=== PATIENT | female | born 1985 | race Caucasian/White ===

== ENCOUNTER 2020-06-13 13:12 | Outpatient (CLI) | payer BC ==
[2020-06-13 15:19] LABS: Basophils % (Auto) 0.2 % (0.0-1.8); Eosinophils # (Auto) 0.1 K/mm3 (0.0-0.4); Eosinophils % (Auto) 1.2 % (0.0-4.3); Hematocrit 35.1 % (30.3-42.9); Hemoglobin 12.1 gm/dl (10.1-14.3); Lymphocytes # (Auto) 2.4 K/mm3 (1.2-5.4); Lymphocytes % (Auto) 20.2 % (13.4-35.0); Mean Corpuscular HGB Conc 35 % (30-34); Mean Corpuscular Volume 90 fl (79-97); Monocytes # (Auto) 0.5 K/mm3 (0.0-0.8); Monocytes % (Auto) 4.3 % (0.0-7.3); Platelet Count 267 K/mm3 (140-440); Red Cell Distribution Width 14.3 % (13.2-15.2)
== END 2020-06-13 13:13 | disposition home or self-care (01) ==
LOC: LAB 13:12
PROVIDERS: ATTEND Obstetrics & Gynecology
DX: N92.5 Other specified irregular menstruation (principal)
CPT/HCPCS: 36415; 85025; 85652; 86592; 86705; 86803; 86900; 86901; 87517

== ENCOUNTER 2020-07-11 08:53 | Outpatient (CLI) | payer BC | END 2020-07-11 08:54 | disposition home or self-care (01) | LOC: LAB 08:53 | PROVIDERS: ATTEND Obstetrics & Gynecology | DX: O09.522 Supervision of elderly multigravida, second trimester (principal); Z13.1 Encounter for screening for diabetes mellitus; Z11.3 Encounter for screening for infections with a predominantly sexual mode of transmission; Z3A.00 Weeks of gestation of pregnancy not specified | CPT/HCPCS: 36415; 86689; 86762; 86850 ==

== ENCOUNTER 2020-08-04 16:02 | Outpatient (CLI) | payer BC ==
[2020-08-04 16:56] LABS: Hematocrit 34.7 % (30.3-42.9); Hemoglobin 11.9 gm/dl (10.1-14.3)
== END 2020-08-04 16:03 | disposition home or self-care (01) ==
LOC: LAB 16:02
PROVIDERS: ATTEND Obstetrics & Gynecology
DX: O09.892 Supervision of other high risk pregnancies, second trimester (principal); Z3A.24 24 weeks gestation of pregnancy
CPT/HCPCS: 36415; 82951; 85014; 85018; 85660

== ENCOUNTER 2020-09-20 14:23 | Outpatient (CLI) | payer BC | END 2020-09-20 14:24 | disposition home or self-care (01) | LOC: LAB 14:23 | PROVIDERS: ATTEND Obstetrics & Gynecology Maternal & Fetal Medicine | DX: O24.113 Pre-existing type 2 diabetes mellitus, in pregnancy, third trimester (principal); Z3A.00 Weeks of gestation of pregnancy not specified | CPT/HCPCS: 36415; 83036 ==

== ENCOUNTER 2020-10-18 16:17 | Outpatient (CLI) | payer BC ==
[2020-10-26 07:47] LABS: HIV-1 Antibody Differentiation SEE SCANNED RESULT; HIV-2 Antibody Differentiation SEE SCANNED RESULT
== END 2020-10-18 16:18 | disposition home or self-care (01) ==
LOC: LAB 16:17
PROVIDERS: ATTEND Obstetrics & Gynecology
DX: O09.893 Supervision of other high risk pregnancies, third trimester (principal); O98.513 Other viral diseases complicating pregnancy, third trimester; Z3A.35 35 weeks gestation of pregnancy
CPT/HCPCS: 36415; 86592; 86689

== ENCOUNTER 2020-10-23 17:56 | Outpatient (CLI) | payer BC ==
[2020-10-23] MEDS ORDERED: LACTATED RINGERS 1,000 ML IV ONE (18:14)
[2020-10-23 19:02] LABS: Bacteria,Urine 1+ /HPF (Negative); Bilirubin,Urine NEG (Negative); Blood,Urine SM (Negative); Color,Urine Yellow (Yellow); Mucus,Urine FEW /HPF; Urobilinogen,Urine < 2.0 mg/dL (<2.0); WBC,Urine < 1.0 /HPF (0.0-6.0)
[2020-10-23 19:25] VITALS: BP 112/72
== END 2020-10-23 19:45 | disposition home or self-care (01) ==
LOC: TRG 17:56 → APU 18:00 → TRG 19:45
PROVIDERS: ATTEND Obstetrics & Gynecology
DX: O09.893 Supervision of other high risk pregnancies, third trimester (principal); Z3A.35 35 weeks gestation of pregnancy
CPT/HCPCS: 59025; 81001

== ENCOUNTER 2020-11-08 16:14 | Inpatient (IN) | payer BC ==
[2020-11-08] MEDS ORDERED: MINERAL OIL 30 ML ORAL LIQD PO PRN (16:29)
[2020-11-08] MEDS ORDERED: LOPERAMIDE 2 MG CAP PO PRN (16:29)
[2020-11-08] MEDS ORDERED: ACETAMINOPHEN 325 MG TAB PO PRN (16:29)
[2020-11-08] MEDS ORDERED: miSOPROStol 200 MCG TAB PR PRN (16:29)
[2020-11-08] MEDS ORDERED: NalbUPHINE 10 MG/1 ML INJ IV PRN (16:29)
[2020-11-08] MEDS ORDERED: ONDANSETRON 4 MG/2 ML INJ IV PRN (16:29)
[2020-11-08] MEDS ORDERED: CARBOPROST TROMETHAMINE 250 MCG/1 ML INJ IM PRN (16:29)
[2020-11-08] MEDS ORDERED: OXYTOCIN 10 UNIT/1 ML INJ IM PRN (16:29)
[2020-11-08] MEDS ORDERED: ePHEDrine SULFATE 50 MG/1 ML INJ IV PRN (16:29)
[2020-11-08] MEDS ORDERED: TERBUTALINE 1 MG/1 ML INJ SUB-Q PRN (16:29)
[2020-11-08] MEDS ORDERED: DEXTROSE 50% IN WATER (25GM) 50 ML SYRINGE IV PRN (16:37)
--- NOTE | 2020-11-08 16:39 | History and Physical Report ---
History of Present Illness Date of examination: 11/08/20 Chief complaint: pt sent for admission from office d/t pre-eclampsia, admit for IOL. History of present illness: EDC Calculations by LMP: 11/20/2020 Past History : 1 Term Births: 0 Premature Births: 0 Living Children: 0 Para: 0 Mult. Births: 0 Prev : 0 Prev. attempt? 0 Aborta: 0 Elect. Ab: 0 Spont. Ab: 0 Ectopics: 0 Past Medical History: bronchitis - seasonally, uses albuterol inhaler COVID 19 + in march 2020 Past Surgical History: Negative Past Surgical History Past Medical History Surgery (Non-clamp remover): Negative Past Surgical History Abnormal PAP: negative FIONA Exposure: negative Infertility: negative Uterine Anomaly: negative Uterine Surgery (not C/S): negative Other Gynecologic Problems: negative Family Hx: DM - mother heart problems - father stomach - maybe uterine cancer; MGM Social Hx: no ETOH/Drugs/Smoking no pets not currenlty working Infection History Hx of STD: none HIV Risk Eval: no Hepatitis B Risk Eval: low risk Personal hx. of genital herpes: no Partner hx. of genital herpes: no Rash, Viral, or Febrile illness since last LMP? no Genetic History ADVANCED MATERNAL AGE Congenital Heart Defect: Mom: no Dad: no Merle Disease: Mom: no Dad: no Thalassemia Mom: no Dad: no Neural Tube Defect Mom: no Dad: no Down's Syndrome Mom: no Dad: no Cristino-Sachs Mom: no Dad: no Sickle Cell Disease/Trait Mom: no Dad: no Hemophilia Mom: no Dad: no Muscular Dystrophy Mom: no Dad: no Cystic Fibrosis Mom: no Dad: no Burke Chorea Mom: no Dad: no Mental Retardation Mom: no Dad: no Fragile X Mom: no Dad: no Other Genetic/Chromosomal Disorder Mom: no Dad: no Child w/other defect Mom: no Dad: no Enviromental Exposures Xray Exposure: no Medication, drug, or alcohol use since LMP: no Chemical/Other Exposure: no Exposure to Cat Liter: no Hx of Parvovirus (Fifth Disease): no Occupational Exposure to Children: none Current Allergies (reviewed today): * SEASONAL ALLERGIES (Critical) Past History Past Medical History: other (see HPI) Past Surgical History: other (see HPI) 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) Family/Genetic History: other (see HPI) Social history: no significant social history, , lives with family - Obstetrical History Expected Date of Delivery: 11/20/20 Actual Gestation: 38 Week(s) 2 Day(s) : 1 Para: 0 Hx # Term Pregnancies: 0 Number of Pregnancies: 0 Spontaneous Abortions: 0 Induced : 0 Number of Living Children: 0 Medications and Allergies Allergies Allergy/AdvReac Type Severity Reaction Status Date / Time No Known Allergies Allergy Verified 10/23/20 18:10 Review of Systems All systems: negative - Vital Signs Vital signs: Vital Signs Pulse BP 71 136/80 11/08/20 16:32 11/08/20 16:32 Temp Pulse Resp BP Pulse Ox 71 136/80 11/08/20 16:32 11/08/20 16:32 - Physical Exam Breasts: Positive: normal Cardiovascular: Regular rate Lungs: Positive: Normal air movement Abdomen: Positive: normal appearance, soft Genitourinary (Female): Positive: normal external genitalia, normal perenium Vagina: Positive: normal moisture Uterus: Positive: normal size, normal contour Anus/Rectum: Positive: normal perianal skin Extremities: Positive: edema (2+ pitting, periorbital edema present as well) Deep Tendon Reflex Grade: Normal but brisk +3 - Obstetrical FHR: category 1 Uterine Contraction Monitor Mode: External Cervical Dilatation: 0 (sve by LOLIS Ugarte in office) Cervical Effacement Percentage: 50 station: -2 Uterine Contraction Pattern: Irregular Uterine Tone Measurement Phase: Contraction Uterine Contraction Intensity: Mild Results All other labs normal. Assessment and Plan 35y/o @ 38+2 weeks seen in office today, b/p 148/96 with 3+ proteinuria on dip, DTRs brisk with edema noted on face and extremities. GBS neg. IDDM controlled on insulin. Pt reports frequent ESPARZA, denies epigastric pain or visual changes. AMFM u/s on 11/03; EFW 7#3oz, DELON 17, cephalic. Orders in EMR. Plan to begin IOL tonight. Dr. Garrett aware. discussed with patient and cervical ripening tonight with reassessment in AM, serial IOL lasting 3-5 days possible. All questions addressed. - Patient Problems (1) Advanced maternal age (AMA) in Current Visit: Yes Status: Acute (2) IDDM (insulin dependent diabetes mellitus) Current Visit: Yes Status: Acute Plan to address problem: accuchecks q6hr during cervical ripening, q2h in labor Sliding scale insulin resume 1/2 of current dose after delivery (3) Pre-eclampsia Current Visit: Yes Status: Acute Qualifiers: Trimester: third trimester Qualified Code(s): O14.93 - Unspecified pre- eclampsia, third trimester Plan to address problem: start cervicial ripening tonight pre-e labs ordered strict I&O close monitoring of b/ps -use of antihypertensives if needed Mag sulfate for neuro protection when in active labor mag levels q6hr at that time. (4) 38 weeks gestation of Current Visit: Yes Status: Acute
[2020-11-08] MEDS ORDERED: LIDOCAINE (2%) 20 MG/1 ML VIAL 20 ML MDV INFILTRATI ONE (16:45)
[2020-11-08] MEDS ORDERED: OXYTOCIN DRIP 30 UNITS/500 ML BAG IV SCH (17:00)
[2020-11-08 17:47] LABS: Hematocrit 37.2 % (30.3-42.9); Hemoglobin 12.5 gm/dl (10.1-14.3); Mean Corpuscular HGB Conc 34 % (30-34); Mean Corpuscular Volume 92 fl (79-97); Platelet Count 192 K/mm3 (140-440); Red Blood Count 4.05 M/mm3 (3.65-5.03); Red Cell Distribution Width 15.8 % (13.2-15.2)
[2020-11-08] MEDS ORDERED: DINOPROSTONE 10 MG VAG SUPP VG ONE (18:00)
[2020-11-08 18:06] LABS: Alanine Aminotransferase 18 units/L (7-56); Uric Acid 5.3 mg/dL (3.5-7.6)
[2020-11-08] MEDS: LACTATED RINGERS 1,000 ML IV SCH (19:45)
[2020-11-08] MEDS: INSULIN REGULAR, HUMAN 100 UNITS/1 ML SUB-Q SCH ×2 (21:29→22:51)
[2020-11-08] MEDS: valACYclovir 500 MG TAB PO SCH (22:31)
[2020-11-08 23:05] LABS: Bacteria,Urine 2+ /HPF (Negative); Bilirubin,Urine NEG (Negative); Blood,Urine MOD (Negative); Color,Urine Yellow (Yellow); Urobilinogen,Urine < 2.0 mg/dL (<2.0)
--- NOTE | 2020-11-09 07:37 | Progress Note ---
Assessment and Plan Pt reports c/o cramping pains /10, otherwise denies complaints at this time. IOL options with risk and benefits discussed in length with pt and RN @BS. Pt desires cervidil to remain for 12 hours then pitocin augmentation to start. SVE deferred per pt preferences. POC d/w pt and RN. All questions and concerns addressed. - Patient Problems (1) 38 weeks gestation of Current Visit: Yes Status: Acute (2) Advanced maternal age (AMA) in Current Visit: Yes Status: Acute (3) IDDM (insulin dependent diabetes mellitus) Current Visit: Yes Status: Acute Plan to address problem: blood glucose check q6h until active labor, then q2h sliding scale insulin start 1/2 home dose after delivery (4) Pre-eclampsia Current Visit: Yes Status: Acute Qualifiers: Trimester: third trimester Qualified Code(s): O14.93 - Unspecified pre- eclampsia, third trimester Plan to address problem: monitor closely and notify provider with any changes in status strict I&O magnesium sulfate IV once in active labor with lab level checks q6h Subjective - Subjective Date of service: 11/09/20 Principal diagnosis: IUP @38w3d, IOL for Preeclampsia, IDDM Patient reports: movement normal, contractions, no new complaints, no loss of fluid, no vaginal bleeding Objective - Vital Signs Vital Signs: Vital Signs - 12hr 11/08/20 11/08/20 11/08/20 19:49 20:12 20:13 Temperature Pulse Rate 73 57 L Respiratory Rate Blood Pressure 135/56 113/59 O2 Sat by Pulse 64 L 98 Oximetry 11/08/20 11/08/20 11/08/20 20:17 20:18 20:23 Temperature Pulse Rate 58 L 61 68 Respiratory Rate Blood Pressure 119/62 O2 Sat by Pulse 99 99 Oximetry 11/08/20 11/08/20 11/08/20 20:28 20:33 20:38 Temperature Pulse Rate 60 60 66 Respiratory Rate Blood Pressure 116/57 O2 Sat by Pulse 99 98 99 Oximetry 11/08/20 11/08/20 11/08/20 20:43 20:47 20:48 Temperature Pulse Rate 63 56 L 71 Respiratory Rate Blood Pressure 103/57 O2 Sat by Pulse 98 99 Oximetry 08/04/21 08/04/21 08/04/21 20:53 21:05 21:10 Temperature Pulse Rate 82 94 H 82 Respiratory Rate Blood Pressure O2 Sat by Pulse 97 98 99 Oximetry 11/08/20 11/08/20 11/08/20 21:15 21:17 21:20 Temperature Pulse Rate 74 85 88 Respiratory Rate Blood Pressure 129/80 O2 Sat by Pulse 99 99 Oximetry 11/08/20 11/08/20 11/08/20 21:25 21:30 21:34 Temperature Pulse Rate 74 98 H 61 Respiratory Rate Blood Pressure 111/53 O2 Sat by Pulse 99 98 Oximetry 11/08/20 11/08/20 11/08/20 21:35 21:40 21:45 Temperature Pulse Rate 65 76 58 L Respiratory Rate Blood Pressure O2 Sat by Pulse 99 100 99 Oximetry 11/08/20 11/08/20 11/08/20 21:47 21:50 21:55 Temperature Pulse Rate 67 60 74 Respiratory Rate Blood Pressure 115/59 O2 Sat by Pulse 99 99 Oximetry 11/08/20 11/08/20 11/08/20 22:00 22:08 22:09 Temperature Pulse Rate 78 99 H 76 Respiratory Rate Blood Pressure 128/65 O2 Sat by Pulse 100 100 Oximetry 11/08/20 11/08/20 11/08/20 22:13 22:18 22:19 Temperature Pulse Rate 81 76 90 Respiratory Rate Blood Pressure 157/69 O2 Sat by Pulse 99 99 Oximetry 11/08/20 11/08/20 11/08/20 22:23 22:28 22:33 Temperature Pulse Rate 84 64 72 Respiratory Rate Blood Pressure 122/65 O2 Sat by Pulse 100 99 98 Oximetry 11/08/20 11/08/20 11/08/20 22:35 22:38 22:43 Temperature 98.4 F Pulse Rate 74 76 Respiratory 16 Rate Blood Pressure O2 Sat by Pulse 100 99 Oximetry 11/08/20 11/08/20 11/08/20 22:48 22:53 22:58 Temperature Pulse Rate 72 70 59 L Respiratory Rate Blood Pressure 109/58 O2 Sat by Pulse 99 99 99 Oximetry 11/08/20 11/08/20 11/08/20 23:02 23:03 23:08 Temperature Pulse Rate 78 72 73 Respiratory Rate Blood Pressure 105/55 O2 Sat by Pulse 100 99 Oximetry 11/08/20 11/08/20 11/08/20 23:13 23:17 23:18 Temperature Pulse Rate 77 62 65 Respiratory Rate Blood Pressure 104/56 O2 Sat by Pulse 99 99 Oximetry 11/08/20 11/08/20 11/08/20 23:23 23:28 23:32 Temperature Pulse Rate 65 63 75 Respiratory Rate Blood Pressure 100/51 O2 Sat by Pulse 99 100 Oximetry 11/08/20 11/08/20 11/08/20 23:33 23:38 23:43 Temperature Pulse Rate 72 66 68 Respiratory Rate Blood Pressure O2 Sat by Pulse 100 100 99 Oximetry 11/08/20 11/08/20 11/08/20 23:47 23:48 23:53 Temperature Pulse Rate 62 75 74 Respiratory Rate Blood Pressure 103/49 O2 Sat by Pulse 100 99 Oximetry 11/08/20 11/09/20 11/09/20 23:58 00:02 00:03 Temperature Pulse Rate 69 61 61 Respiratory Rate Blood Pressure 102/51 O2 Sat by Pulse 99 99 Oximetry 11/09/20 11/09/20 11/09/20 00:08 00:13 00:17 Temperature Pulse Rate 67 71 72 Respiratory Rate Blood Pressure 86/37 O2 Sat by Pulse 100 99 Oximetry 11/09/20 11/09/20 11/09/20 00:18 00:23 00:34 Temperature Pulse Rate 77 69 75 Respiratory Rate Blood Pressure O2 Sat by Pulse 99 99 99 Oximetry 11/09/20 11/09/20 11/09/20 00:39 00:44 00:49 Temperature Pulse Rate 70 76 63 Respiratory Rate Blood Pressure 112/57 O2 Sat by Pulse 99 98 99 Oximetry 11/09/20 11/09/20 11/09/20 00:54 00:59 01:02 Temperature Pulse Rate 82 71 61 Respiratory Rate Blood Pressure 116/55 O2 Sat by Pulse 100 100 Oximetry 11/09/20 11/09/20 11/09/20 01:04 01:09 01:14 Temperature Pulse Rate 65 77 64 Respiratory Rate Blood Pressure O2 Sat by Pulse 99 98 99 Oximetry 11/09/20 11/09/20 11/09/20 01:17 01:19 01:24 Temperature Pulse Rate 70 71 64 Respiratory Rate Blood Pressure 124/66 O2 Sat by Pulse 98 98 Oximetry 11/09/20 11/09/20 11/09/20 01:29 01:32 01:34 Temperature Pulse Rate 58 L 78 61 Respiratory Rate Blood Pressure 116/57 O2 Sat by Pulse 98 99 Oximetry 11/09/20 11/09/20 11/09/20 01:39 01:44 01:47 Temperature Pulse Rate 56 L 64 76 Respiratory Rate Blood Pressure 111/57 O2 Sat by Pulse 99 98 Oximetry 11/09/20 11/09/20 11/09/20 01:49 01:54 01:59 Temperature Pulse Rate 70 63 60 Respiratory Rate Blood Pressure O2 Sat by Pulse 98 98 98 Oximetry 11/09/20 11/09/20 11/09/20 02:03 02:04 02:09 Temperature Pulse Rate 77 74 64 Respiratory Rate Blood Pressure 133/69 O2 Sat by Pulse 98 98 Oximetry 11/09/20 11/09/20 11/09/20 02:14 02:19 02:30 Temperature Pulse Rate 62 80 70 Respiratory Rate Blood Pressure 119/58 O2 Sat by Pulse 98 99 99 Oximetry 11/09/20 11/09/20 11/09/20 02:35 02:36 02:40 Temperature Pulse Rate 65 70 68 Respiratory Rate Blood Pressure 125/80 O2 Sat by Pulse 99 98 Oximetry 11/09/20 11/09/20 11/09/20 02:45 02:49 02:50 Temperature Pulse Rate 78 70 66 Respiratory Rate Blood Pressure 117/56 O2 Sat by Pulse 98 100 Oximetry 11/09/20 11/09/20 11/09/20 02:55 03:00 03:02 Temperature Pulse Rate 70 60 73 Respiratory Rate Blood Pressure 126/65 O2 Sat by Pulse 100 99 Oximetry 11/09/20 11/09/20 11/09/20 03:05 03:10 03:15 Temperature Pulse Rate 67 55 L 70 Respiratory Rate Blood Pressure O2 Sat by Pulse 99 98 99 Oximetry 11/09/20 11/09/20 11/09/20 03:18 03:20 03:25 Temperature Pulse Rate 57 L 55 L 57 L Respiratory Rate Blood Pressure 124/78 O2 Sat by Pulse 98 99 Oximetry 11/09/20 11/09/20 11/09/20 03:30 03:32 03:35 Temperature Pulse Rate 57 L 62 68 Respiratory Rate Blood Pressure 121/58 O2 Sat by Pulse 100 99 Oximetry 11/09/20 11/09/20 11/09/20 03:40 03:51 03:56 Temperature Pulse Rate 67 78 79 Respiratory Rate Blood Pressure O2 Sat by Pulse 98 99 98 Oximetry 11/09/20 11/09/20 11/09/20 04:01 04:02 04:06 Temperature Pulse Rate 62 54 L 74 Respiratory Rate Blood Pressure 124/58 O2 Sat by Pulse 99 100 Oximetry 11/09/20 11/09/20 11/09/20 04:11 04:16 04:17 Temperature Pulse Rate 69 65 56 L Respiratory Rate Blood Pressure 117/59 O2 Sat by Pulse 100 99 Oximetry 11/09/20 11/09/20 11/09/20 04:21 04:26 04:31 Temperature Pulse Rate 61 66 53 L Respiratory Rate Blood Pressure O2 Sat by Pulse 99 100 99 Oximetry 11/09/20 11/09/20 11/09/20 04:32 04:36 04:41 Temperature Pulse Rate 51 L 56 L 54 L Respiratory Rate Blood Pressure 112/55 O2 Sat by Pulse 98 99 Oximetry 11/09/20 11/09/20 11/09/20 04:46 04:48 04:51 Temperature Pulse Rate 60 55 L 51 L Respiratory Rate Blood Pressure 116/57 O2 Sat by Pulse 100 98 Oximetry 11/09/20 11/09/20 11/09/20 04:56 05:01 05:02 Temperature Pulse Rate 52 L 49 L 55 L Respiratory Rate Blood Pressure 120/70 O2 Sat by Pulse 98 99 Oximetry 11/09/20 11/09/20 11/09/20 05:06 05:11 05:16 Temperature Pulse Rate 65 60 55 L Respiratory Rate Blood Pressure O2 Sat by Pulse 98 99 98 Oximetry 11/09/20 11/09/20 11/09/20 05:21 05:29 05:34 Temperature Pulse Rate 62 74 70 Respiratory Rate Blood Pressure O2 Sat by Pulse 99 100 98 Oximetry 11/09/20 11/09/20 11/09/20 05:37 05:39 05:44 Temperature Pulse Rate 63 59 L 74 Respiratory Rate Blood Pressure 100/53 O2 Sat by Pulse 99 98 Oximetry 11/09/20 11/09/20 11/09/20 05:48 05:49 05:54 Temperature Pulse Rate 67 59 L 58 L Respiratory Rate Blood Pressure 114/55 O2 Sat by Pulse 99 99 Oximetry 11/09/20 11/09/20 11/09/20 05:59 06:02 06:04 Temperature Pulse Rate 58 L 63 55 L Respiratory Rate Blood Pressure 105/55 O2 Sat by Pulse 98 97 Oximetry 11/09/20 11/09/20 11/09/20 06:09 06:14 06:18 Temperature Pulse Rate 52 L 71 52 L Respiratory Rate Blood Pressure 106/57 O2 Sat by Pulse 98 98 Oximetry 11/09/20 11/09/20 11/09/20 06:19 06:24 06:25 Temperature Pulse Rate 56 L 74 57 L Respiratory Rate Blood Pressure O2 Sat by Pulse 98 92 97 Oximetry 11/09/20 11/09/20 11/09/20 06:30 06:32 06:33 Temperature Pulse Rate 60 68 65 Respiratory Rate Blood Pressure 100/56 O2 Sat by Pulse 98 93 Oximetry 11/09/20 11/09/20 11/09/20 06:35 06:54 07:02 Temperature Pulse Rate 74 63 56 L Respiratory Rate Blood Pressure 109/62 105/53 O2 Sat by Pulse 97 Oximetry 11/09/20 11/09/20 07:17 07:32 Temperature Pulse Rate 58 L 60 Respiratory Rate Blood Pressure 96/54 99/55 O2 Sat by Pulse Oximetry - Exam Breasts: deferred Cardiovascular: Regular rate Lungs: Clear to auscultation, Normal air movement Abdomen: Present: normal appearance, soft Vulva: both: normal Uterus: Present: normal. Absent: tenderness FHR: auscultation normal, category 1 Uterine Contraction Monitor Mode: External Uterine Contraction Pattern: Irregular Uterine Tone Measurement Phase: Resting Extremities: edema (2+ pitting BLE) - Labs Labs: Abnormal Labs 11/08/20 11/08/20 11/08/20 17:32 17:32 22:47 RDW 15.8 H POC Glucose 187 H Lactate Dehydrogenase 214 H Urine WBC (Auto) 11/08/20 Unknown RDW POC Glucose Lactate Dehydrogenase Urine WBC (Auto) 7.0 H Laboratory Results - last 24 hr 11/08/20 11/08/20 11/08/20 17:32 17:32 17:32 WBC 7.9 RBC 4.05 Hgb 12.5 Hct 37.2 MCV 92 MCH 31 MCHC 34 RDW 15.8 H Plt Count 192 Creatinine Estimated GFR POC Glucose Uric Acid AST ALT Lactate Dehydrogenase Urine Color Urine Turbidity Urine pH Ur Specific [place] Urine Protein Urine Glucose (UA) Urine Ketones Urine Blood Urine Nitrite Urine Bilirubin Urine Urobilinogen Ur Leukocyte Esterase Urine WBC (Auto) Urine RBC (Auto) U Epithel Cells (Auto) Urine Bacteria (Auto) Syphilis IgG Antibody Nonreactive Blood Type AB POSITIVE Antibody Screen Negative 11/08/20 11/08/20 11/08/20 17:32 19:31 22:47 WBC RBC Hgb Hct MCV MCH MCHC RDW Plt Count Creatinine 0.6 Estimated GFR > 60 POC Glucose 76 187 H Uric Acid 5.3 AST 22 ALT 18 Lactate Dehydrogenase 214 H Urine Color Urine Turbidity Urine pH Ur Specific [place] Urine Protein Urine Glucose (UA) Urine Ketones Urine Blood Urine Nitrite Urine Bilirubin Urine Urobilinogen Ur Leukocyte Esterase Urine WBC (Auto) Urine RBC (Auto) U Epithel Cells (Auto) Urine Bacteria (Auto) Syphilis IgG Antibody Blood Type Antibody Screen 11/08/20 11/09/20 Unknown 05:35 WBC RBC Hgb Hct MCV MCH MCHC RDW Plt Count Creatinine Estimated GFR POC Glucose 82 Uric Acid AST ALT Lactate Dehydrogenase Urine Color Yellow Urine Turbidity Clear Urine pH 7.0 Ur Specific [place] 1.006 Urine Protein 100 mg/dl Urine Glucose (UA) Neg Urine Ketones Neg Urine Blood Mod Urine Nitrite Neg Urine Bilirubin Neg Urine Urobilinogen < 2.0 Ur Leukocyte Esterase Mod Urine WBC (Auto) 7.0 H Urine RBC (Auto) 1.0 U Epithel Cells (Auto) 3.0 Urine Bacteria (Auto) 2+ Syphilis IgG Antibody Blood Type Antibody Screen
[2020-11-09] MEDS ORDERED: OXYTOCIN DRIP 30 UNITS/500 ML BAG IV SCH (11:00)
[2020-11-09] MEDS: INSULIN REGULAR, HUMAN 100 UNITS/1 ML SUB-Q SCH ×2 (11:05→17:35)
[2020-11-09] MEDS ORDERED: BUTORPHANOL 2 MG/1 ML INJ IV PRN (14:52)
[2020-11-09] MEDS: fentaNYL 100 MCG/2 ML INJ IV PRN ×3 (15:13→21:32)
[2020-11-09] MEDS: valACYclovir 500 MG TAB PO SCH ×2 (19:08→21:55)
[2020-11-10] MEDS ORDERED: NALOXONE 2 MG/2 ML INJ IV PRN (01:05)
[2020-11-10] MEDS ORDERED: ePHEDrine SULFATE 50 MG/1 ML INJ IV PRN (01:05)
--- NOTE | 2020-11-10 01:05 | Anesthesia Consultation ---
Anesthesia Consult and Med Hx Date of service: 11/10/20 - Airway Anesthetic Teeth Evaluation: Good ROM Head & Neck: Adequate Mental/Hyoid Distance: Adequate Mallampati Class: Class II Intubation Access Assessment: Probably Good - Pulmonary Exam CTA: Yes - Cardiac Exam Cardiac Exam: RRR - Pre-Operative Health Status ASA Pre-Surgery Classification: ASA3 Proposed Anesthetic Plan: Epidural - Pulmonary Hx Asthma: Yes (seasonal w/ inhaler use) - Cardiovascular System Hx Hypertension: Yes - Central Nervous System Hx Seizures: No Hx Psychiatric Problems: No - Endocrine Hx Renal Disease: No Hx Hypothyroidism: No Hx Hyperthyroidism: No - Hematic Hx Anemia: No Hx Sickle Cell Disease: No - Other Systems Hx Alcohol Use: Yes (not during )
--- NOTE | 2020-11-10 01:28 | Progress Note ---
Labor Epidural - Labor Epidural Start Time: 01:11 Stop Time: :20 Performed by:: AMANDA GATES Procedure: Patient is requesting epidural for labor pain. H&P, and labs reviewed. Procedure explained, questions answered, consent obtained. Patient in sitting position with blood pressure cuff and pulse ox on and working. Timeout performed immediately before start of procedure. Sterile chlorahexadine 0.5% prep/drape. 3 mL 1% lidocaine skin wheal at L[3]-L[4]. 18-gauge VGTI Flor[place]atead epidural needle advanced to [id number] with saline at 6 cm. 27-gauge spinal needle advanced until clear, free-flowing CSF. Intrathecal dexmedetomidine [5] mcg administered and needle removed. Epidural catheter unable to be advanced, removed with needle. Needle reinserted to CIRILO saline at 6 cm. Catheter advanced to [12] cm, negative aspiration for blood and csf, negative test dose 3 ml 1.5% lidocaine with epinephrine. Sterile steri-strips and tegaderm applied, followed by tape reinforcement. Patient tolerated procedure well.
[2020-11-10] MEDS: fentaNYL-BUPIV 2 MCG/ML-0.125% 200 MCG/100 ML BAG EPIDURAL SCH ×2 (01:55→10:11)
[2020-11-10] MEDS: INSULIN REGULAR, HUMAN 100 UNITS/1 ML SUB-Q SCH (03:21)
--- NOTE | 2020-11-10 06:58 | Event Note ---
Date: 11/10/20 (late entry) @7537 CNM to BS with RN; pt reports feeling comfortable s/p epidural. Pt denies all complaints; VSS with BP's 90's/50's, Magnesium seizure prophylaxis held and POC d/w pt and RN. Pt declines vaginal exam at this time. Pt encouraged SVE possibly more tolerable with epidural. Pt still declines SVE and states, "please not right now". Labor expectations discussed with pt and family member. All questions and concerns addressed.
[2020-11-10] MEDS ORDERED: PHENYLEPHRINE/NS 1,000 MCG/10 ML SYRINGE (OR USE) IV ONE (07:30)
--- NOTE | 2020-11-10 07:51 | Progress Note ---
Assessment and Plan A: 35 y.o. @ 38.4 wks, IOL d/t Pre eclampsia and GDM (insulin dependent). Cervical exam: 4.5/60/-4. P: Continue with Pitocin per protocol. Will re-examine cervix @ 1200 noon and determine plan based off examination. - Patient Problems (1) IDDM (insulin dependent diabetes mellitus) Current Visit: Yes Status: Acute (2) Pre-eclampsia Current Visit: Yes Status: Acute Qualifiers: Trimester: third trimester Qualified Code(s): O14.93 - Unspecified pre- eclampsia, third trimester Subjective - Subjective Date of service: 11/10/20 (Comfortable with epidural.) Principal diagnosis: IUP @38w4d, IOL for Preeclampsia, IDDM Patient reports: movement normal, contractions, no new complaints, no loss of fluid, no vaginal bleeding Objective - Vital Signs Vital Signs: Vital Signs - 12hr 11/09/20 11/09/20 11/09/20 19:49 19:54 19:59 Temperature Pulse Rate 57 L 57 L 62 Respiratory Rate Blood Pressure O2 Sat by Pulse 96 96 96 Oximetry O2 Sat by Pulse Oximetry [ Anterior Bilateral Throughout] 11/09/20 11/09/20 11/09/20 20:04 20:09 20:14 Temperature Pulse Rate 56 L 58 L 59 L Respiratory Rate Blood Pressure O2 Sat by Pulse 97 97 96 Oximetry O2 Sat by Pulse Oximetry [ Anterior Bilateral Throughout] 11/09/20 11/09/20 11/09/20 20:19 20:24 20:29 Temperature Pulse Rate 57 L 58 L 57 L Respiratory Rate Blood Pressure O2 Sat by Pulse 97 97 98 Oximetry O2 Sat by Pulse Oximetry [ Anterior Bilateral Throughout] 11/09/20 11/09/20 11/09/20 20:34 20:39 20:44 Temperature Pulse Rate 66 58 L 59 L Respiratory Rate Blood Pressure O2 Sat by Pulse 97 97 97 Oximetry O2 Sat by Pulse Oximetry [ Anterior Bilateral Throughout] 11/09/20 11/09/20 11/09/20 20:49 20:54 21:11 Temperature Pulse Rate 63 87 72 Respiratory Rate Blood Pressure 128/64 O2 Sat by Pulse 97 98 Oximetry O2 Sat by Pulse Oximetry [ Anterior Bilateral Throughout] 11/09/20 11/09/20 11/09/20 21:32 21:38 21:43 Temperature Pulse Rate 67 62 Respiratory 18 Rate Blood Pressure O2 Sat by Pulse 97 96 Oximetry O2 Sat by Pulse Oximetry [ Anterior Bilateral Throughout] 11/09/20 11/09/20 11/09/20 21:48 21:53 21:58 Temperature Pulse Rate 65 58 L 63 Respiratory Rate Blood Pressure O2 Sat by Pulse 97 98 97 Oximetry O2 Sat by Pulse Oximetry [ Anterior Bilateral Throughout] 11/09/20 11/09/20 11/09/20 22:03 22:08 22:13 Temperature Pulse Rate 79 67 67 Respiratory Rate Blood Pressure O2 Sat by Pulse 97 98 97 Oximetry O2 Sat by Pulse Oximetry [ Anterior Bilateral Throughout] 11/09/20 11/09/20 11/09/20 22:18 22:23 22:28 Temperature Pulse Rate 64 59 L 62 Respiratory Rate Blood Pressure 90/52 O2 Sat by Pulse 97 97 96 Oximetry O2 Sat by Pulse Oximetry [ Anterior Bilateral Throughout] 11/09/20 11/09/20 11/09/20 22:33 22:38 22:43 Temperature Pulse Rate 62 65 91 H Respiratory Rate Blood Pressure O2 Sat by Pulse 97 96 97 Oximetry O2 Sat by Pulse Oximetry [ Anterior Bilateral Throughout] 11/09/20 11/09/20 11/09/20 22:48 22:53 22:58 Temperature Pulse Rate 58 L 59 L 62 Respiratory Rate Blood Pressure O2 Sat by Pulse 96 97 96 Oximetry O2 Sat by Pulse Oximetry [ Anterior Bilateral Throughout] 11/09/20 11/09/20 11/09/20 23:03 23:08 23:13 Temperature Pulse Rate 62 72 89 Respiratory Rate Blood Pressure O2 Sat by Pulse 96 98 97 Oximetry O2 Sat by Pulse Oximetry [ Anterior Bilateral Throughout] 11/09/20 11/09/20 11/09/20 23:18 23:27 23:32 Temperature Pulse Rate 85 91 H 83 Respiratory Rate Blood Pressure O2 Sat by Pulse 97 99 97 Oximetry O2 Sat by Pulse Oximetry [ Anterior Bilateral Throughout] 11/09/20 11/09/20 11/09/20 23:37 23:42 23:47 Temperature Pulse Rate 81 78 81 Respiratory Rate Blood Pressure O2 Sat by Pulse 97 97 98 Oximetry O2 Sat by Pulse Oximetry [ Anterior Bilateral Throughout] 11/09/20 11/09/20 11/10/20 23:52 23:57 00:00 Temperature 98.3 F Pulse Rate 73 81 Respiratory 18 Rate Blood Pressure O2 Sat by Pulse 97 98 Oximetry O2 Sat by Pulse Oximetry [ Anterior Bilateral Throughout] 11/10/20 11/10/20 11/10/20 00:02 00:07 00:12 Temperature Pulse Rate 62 64 85 Respiratory Rate Blood Pressure O2 Sat by Pulse 99 98 98 Oximetry O2 Sat by Pulse Oximetry [ Anterior Bilateral Throughout] 11/10/20 11/10/20 11/10/20 00:17 00:22 00:27 Temperature Pulse Rate 65 61 66 Respiratory Rate Blood Pressure O2 Sat by Pulse 97 97 97 Oximetry O2 Sat by Pulse Oximetry [ Anterior Bilateral Throughout] 11/10/20 11/10/20 11/10/20 00:32 00:37 00:42 Temperature Pulse Rate 65 65 67 Respiratory Rate Blood Pressure O2 Sat by Pulse 97 96 97 Oximetry O2 Sat by Pulse Oximetry [ Anterior Bilateral Throughout] 11/10/20 11/10/20 11/10/20 00:47 00:52 00:57 Temperature Pulse Rate 63 69 65 Respiratory Rate Blood Pressure O2 Sat by Pulse 97 97 97 Oximetry O2 Sat by Pulse Oximetry [ Anterior Bilateral Throughout] 11/10/20 11/10/20 11/10/20 01:02 01:10 01:13 Temperature Pulse Rate 71 89 88 Respiratory Rate Blood Pressure 118/62 O2 Sat by Pulse 98 97 Oximetry O2 Sat by Pulse Oximetry [ Anterior Bilateral Throughout] 11/10/20 11/10/20 11/10/20 01:15 01:18 01:20 Temperature Pulse Rate 79 92 H 77 Respiratory Rate Blood Pressure 118/58 O2 Sat by Pulse 97 97 Oximetry O2 Sat by Pulse Oximetry [ Anterior Bilateral Throughout] 11/10/20 11/10/20 11/10/20 01:25 01:26 01:27 Temperature Pulse Rate 74 79 75 Respiratory Rate Blood Pressure 119/58 117/57 O2 Sat by Pulse 98 Oximetry O2 Sat by Pulse Oximetry [ Anterior Bilateral Throughout] 11/10/20 11/10/20 11/10/20 01:30 01:33 01:35 Temperature Pulse Rate 71 73 85 Respiratory Rate Blood Pressure 107/56 105/62 O2 Sat by Pulse 97 98 Oximetry O2 Sat by Pulse Oximetry [ Anterior Bilateral Throughout] 11/10/20 11/10/20 11/10/20 01:36 01:39 01:40 Temperature Pulse Rate 86 73 97 H Respiratory Rate Blood Pressure 105/62 105/56 O2 Sat by Pulse 97 Oximetry O2 Sat by Pulse Oximetry [ Anterior Bilateral Throughout] 11/10/20 11/10/20 11/10/20 01:42 01:45 01:48 Temperature Pulse Rate 85 74 86 Respiratory Rate Blood Pressure 114/61 111/61 109/59 O2 Sat by Pulse 97 Oximetry O2 Sat by Pulse Oximetry [ Anterior Bilateral Throughout] 11/10/20 11/10/20 11/10/20 01:50 01:51 01:54 Temperature Pulse Rate 83 81 84 Respiratory Rate Blood Pressure 105/55 112/55 O2 Sat by Pulse 97 Oximetry O2 Sat by Pulse Oximetry [ Anterior Bilateral Throughout] 11/10/20 11/10/20 11/10/20 01:55 01:57 02:00 Temperature Pulse Rate 79 71 78 Respiratory Rate Blood Pressure 113/56 O2 Sat by Pulse 97 98 Oximetry O2 Sat by Pulse Oximetry [ Anterior Bilateral Throughout] 11/10/20 11/10/20 11/10/20 02:03 02:05 02:10 Temperature Pulse Rate 70 71 59 L Respiratory Rate Blood Pressure 98/53 O2 Sat by Pulse 96 97 Oximetry O2 Sat by Pulse Oximetry [ Anterior Bilateral Throughout] 11/10/20 11/10/20 11/10/20 02:13 02:15 02:20 Temperature Pulse Rate 63 60 62 Respiratory Rate Blood Pressure 96/54 O2 Sat by Pulse 97 97 Oximetry O2 Sat by Pulse Oximetry [ Anterior Bilateral Throughout] 11/10/20 11/10/20 11/10/20 02:23 02:25 02:30 Temperature Pulse Rate 59 L 63 66 Respiratory Rate Blood Pressure 90/55 O2 Sat by Pulse 96 96 Oximetry O2 Sat by Pulse Oximetry [ Anterior Bilateral Throughout] 11/10/20 11/10/20 11/10/20 02:35 02:40 02:43 Temperature Pulse Rate 62 81 71 Respiratory Rate Blood Pressure 85/49 93/55 O2 Sat by Pulse 96 96 Oximetry O2 Sat by Pulse Oximetry [ Anterior Bilateral Throughout] 11/10/20 11/10/20 11/10/20 02:45 02:50 02:54 Temperature Pulse Rate 74 75 69 Respiratory Rate Blood Pressure 97/50 O2 Sat by Pulse 96 96 Oximetry O2 Sat by Pulse Oximetry [ Anterior Bilateral Throughout] 11/10/20 11/10/20 11/10/20 02:55 03:00 03:03 Temperature Pulse Rate 67 71 64 Respiratory Rate Blood Pressure 91/53 O2 Sat by Pulse 97 96 Oximetry O2 Sat by Pulse Oximetry [ Anterior Bilateral Throughout] 11/10/20 11/10/20 11/10/20 03:05 03:10 03:13 Temperature Pulse Rate 96 H 64 66 Respiratory Rate Blood Pressure O2 Sat by Pulse 96 96 94 Oximetry O2 Sat by Pulse Oximetry [ Anterior Bilateral Throughout] 11/10/20 11/10/20 11/10/20 03:15 03:20 03:25 Temperature Pulse Rate 63 62 60 Respiratory Rate Blood Pressure O2 Sat by Pulse 95 96 96 Oximetry O2 Sat by Pulse Oximetry [ Anterior Bilateral Throughout] 11/10/20 11/10/20 11/10/20 03:30 03:35 03:38 Temperature Pulse Rate 66 64 62 Respiratory Rate Blood Pressure 86/47 O2 Sat by Pulse 95 95 Oximetry O2 Sat by Pulse Oximetry [ Anterior Bilateral Throughout] 11/10/20 11/10/20 11/10/20 03:40 03:44 03:45 Temperature Pulse Rate 66 76 62 Respiratory Rate Blood Pressure O2 Sat by Pulse 95 94 96 Oximetry O2 Sat by Pulse Oximetry [ Anterior Bilateral Throughout] 11/10/20 11/10/20 11/10/20 03:50 03:55 04:00 Temperature Pulse Rate 79 61 60 Respiratory Rate Blood Pressure O2 Sat by Pulse 96 97 97 Oximetry O2 Sat by Pulse Oximetry [ Anterior Bilateral Throughout] 11/10/20 11/10/20 11/10/20 04:05 04:07 04:10 Temperature Pulse Rate 73 57 L 62 Respiratory Rate Blood Pressure 88/49 O2 Sat by Pulse 96 97 Oximetry O2 Sat by Pulse Oximetry [ Anterior Bilateral Throughout] 11/10/20 11/10/20 11/10/20 04:15 04:20 04:25 Temperature 98.4 F Pulse Rate 70 68 65 Respiratory 16 Rate Blood Pressure O2 Sat by Pulse 98 97 97 Oximetry O2 Sat by Pulse Oximetry [ Anterior Bilateral Throughout] 11/10/20 11/10/20 11/10/20 04:30 04:35 04:39 Temperature Pulse Rate 60 78 60 Respiratory Rate Blood Pressure 89/54 O2 Sat by Pulse 98 96 Oximetry O2 Sat by Pulse Oximetry [ Anterior Bilateral Throughout] 11/10/20 11/10/20 11/10/20 04:40 04:45 04:50 Temperature Pulse Rate 70 64 71 Respiratory Rate Blood Pressure O2 Sat by Pulse 97 98 97 Oximetry O2 Sat by Pulse Oximetry [ Anterior Bilateral Throughout] 11/10/20 11/10/20 11/10/20 04:55 05:00 05:05 Temperature Pulse Rate 65 64 71 Respiratory Rate Blood Pressure O2 Sat by Pulse 98 97 96 Oximetry O2 Sat by Pulse Oximetry [ Anterior Bilateral Throughout] 11/10/20 11/10/20 11/10/20 05:06 05:10 05:15 Temperature Pulse Rate 62 66 77 Respiratory Rate Blood Pressure 96/51 O2 Sat by Pulse 96 97 Oximetry O2 Sat by Pulse Oximetry [ Anterior Bilateral Throughout] 11/10/20 11/10/20 11/10/20 05:20 05:25 05:30 Temperature Pulse Rate 74 72 81 Respiratory Rate Blood Pressure O2 Sat by Pulse 98 97 97 Oximetry O2 Sat by Pulse Oximetry [ Anterior Bilateral Throughout] 11/10/20 11/10/20 11/10/20 05:35 05:36 05:40 Temperature Pulse Rate 71 74 76 Respiratory Rate Blood Pressure 107/54 O2 Sat by Pulse 96 89 97 Oximetry O2 Sat by Pulse Oximetry [ Anterior Bilateral Throughout] 11/10/20 11/10/20 11/10/20 05:45 05:50 05:56 Temperature Pulse Rate 78 73 75 Respiratory Rate Blood Pressure O2 Sat by Pulse 98 97 98 Oximetry O2 Sat by Pulse Oximetry [ Anterior Bilateral Throughout] 11/10/20 11/10/20 11/10/20 06:01 06:06 06:11 Temperature Pulse Rate 83 71 63 Respiratory Rate Blood Pressure 98/51 O2 Sat by Pulse 98 100 97 Oximetry O2 Sat by Pulse Oximetry [ Anterior Bilateral Throughout] 11/10/20 11/10/20 11/10/20 06:16 06:21 06:26 Temperature Pulse Rate 65 62 62 Respiratory Rate Blood Pressure O2 Sat by Pulse 97 97 97 Oximetry O2 Sat by Pulse Oximetry [ Anterior Bilateral Throughout] 11/10/20 11/10/20 11/10/20 06:31 06:36 06:41 Temperature Pulse Rate 64 63 68 Respiratory Rate Blood Pressure 90/52 O2 Sat by Pulse 97 98 98 Oximetry O2 Sat by Pulse Oximetry [ Anterior Bilateral Throughout] 11/10/20 11/10/20 11/10/20 06:46 06:51 06:56 Temperature Pulse Rate 70 66 68 Respiratory Rate Blood Pressure O2 Sat by Pulse 98 98 97 Oximetry O2 Sat by Pulse Oximetry [ Anterior Bilateral Throughout] 11/10/20 11/10/20 11/10/20 07:01 07:04 07:06 Temperature Pulse Rate 84 96 H 83 Respiratory Rate Blood Pressure 103/55 O2 Sat by Pulse 97 94 93 Oximetry O2 Sat by Pulse Oximetry [ Anterior Bilateral Throughout] 11/10/20 11/10/20 11/10/20 07:11 07:16 07:17 Temperature Pulse Rate 73 82 82 Respiratory Rate Blood Pressure O2 Sat by Pulse 96 94 94 Oximetry O2 Sat by Pulse Oximetry [ Anterior Bilateral Throughout] 11/10/20 11/10/20 11/10/20 07:21 07:26 07:31 Temperature Pulse Rate 96 H 77 85 Respiratory Rate Blood Pressure O2 Sat by Pulse 99 98 99 Oximetry O2 Sat by Pulse Oximetry [ Anterior Bilateral Throughout] 11/10/20 11/10/20 11/10/20 07:32 07:36 07:41 Temperature 98.0 F Pulse Rate 81 85 Respiratory Rate Blood Pressure 100/57 O2 Sat by Pulse 97 97 Oximetry O2 Sat by Pulse 97 Oximetry [ Anterior Bilateral Throughout] 11/10/20 07:46 Temperature Pulse Rate 73 Respiratory Rate Blood Pressure O2 Sat by Pulse 97 Oximetry O2 Sat by Pulse Oximetry [ Anterior Bilateral Throughout] - Exam Narrative Exam: Patient with cervical exam that is essentially unchanged from 0130 exam, 4-5/60/-4. Discussed with patient regarding progress of labor at this time. We will given her some time to see if we can get her labor to progress some with position changes and Pitocin. If labor does not progress it is a possibility of the need for a . Pt stated that she understood and "I will do what you guys recommend." Will continue to increase the Pitocin and recheck patient at lunch time. Denies ESPARZA, blurred vision, spots before her eyes, chest pain, shortness of breath, and upper abdominal pain. Blood pressure ranges have been 90-100's/50's. Her glucose ranges have been WNL. Breasts: deferred Cardiovascular: Regular rate Lungs: Normal air movement Abdomen: Present: normal appearance, soft Vulva: both: normal FHR: category 1 Uterine Contraction Monitor Mode: External Cervical Dilatation: 4.5 Cervical Effacement Percentage: 60 station: -4 Uterine Contraction Pattern: Regular Uterine Tone Measurement Phase: Resting Uterine Contraction Intensity: Moderate - Labs Labs: Abnormal Labs 11/08/20 11/08/20 11/08/20 17:32 17:32 22:47 RDW 15.8 H POC Glucose 187 H Lactate Dehydrogenase 214 H Urine WBC (Auto) 11/08/20 11/10/20 Unknown 05:59 RDW POC Glucose 69 L Lactate Dehydrogenase Urine WBC (Auto) 7.0 H Laboratory Results - last 24 hr 11/09/20 11/09/20 11/09/20 09:32 11:04 17:35 POC Glucose 100 89 Coronavirus (PCR) Negative 11/10/20 11/10/20 00:03 05:59 POC Glucose 76 69 L Coronavirus (PCR)
[2020-11-10] MEDS: valACYclovir 500 MG TAB PO SCH ×2 (10:25→22:43)
[2020-11-10] MEDS ORDERED: METOCLOPRAMIDE 10 MG/2 ML INJ IV ONE (12:21)
[2020-11-10] MEDS ORDERED: BICITRA ORAL LIQD 30ML PO ONE (12:21)
[2020-11-10] MEDS ORDERED: FAMOTIDINE 20 MG/2 ML INJ IV ONE (12:21)
--- NOTE | 2020-11-10 12:21 | Progress Note ---
Assessment and Plan A: 35 y.o. @ 38.4 wks, IOL for pre eclampsia. GDM. Unchanged cervical exam from this AM(4.5/60/-4). P: Consents signed for . Pre op medications ordered. - Patient Problems (1) IDDM (insulin dependent diabetes mellitus) Current Visit: Yes Status: Acute (2) Pre-eclampsia Current Visit: Yes Status: Acute Qualifiers: Trimester: third trimester Qualified Code(s): O14.93 - Unspecified pre- eclampsia, third trimester Subjective - Subjective Date of service: 11/10/20 (Unchanged cervical exam.) Principal diagnosis: IUP @38w4d, IOL for Preeclampsia, GDM on insulin Patient reports: movement normal, contractions, no new complaints, no loss of fluid, no vaginal bleeding Objective - Vital Signs Vital Signs: Vital Signs - 12hr 11/10/20 11/10/20 11/10/20 00:22 00:27 00:32 Temperature Pulse Rate 61 66 65 Respiratory Rate Blood Pressure O2 Sat by Pulse 97 97 97 Oximetry O2 Sat by Pulse Oximetry [ Anterior Bilateral Throughout] 11/10/20 11/10/20 11/10/20 00:37 00:42 00:47 Temperature Pulse Rate 65 67 63 Respiratory Rate Blood Pressure O2 Sat by Pulse 96 97 97 Oximetry O2 Sat by Pulse Oximetry [ Anterior Bilateral Throughout] 11/10/20 11/10/20 11/10/20 00:52 00:57 01:02 Temperature Pulse Rate 69 65 71 Respiratory Rate Blood Pressure O2 Sat by Pulse 97 97 98 Oximetry O2 Sat by Pulse Oximetry [ Anterior Bilateral Throughout] 11/10/20 11/10/20 11/10/20 01:10 01:13 01:15 Temperature Pulse Rate 89 88 79 Respiratory Rate Blood Pressure 118/62 O2 Sat by Pulse 97 97 Oximetry O2 Sat by Pulse Oximetry [ Anterior Bilateral Throughout] 11/10/20 11/10/20 11/10/20 01:18 01:20 01:25 Temperature Pulse Rate 92 H 77 74 Respiratory Rate Blood Pressure 118/58 O2 Sat by Pulse 97 98 Oximetry O2 Sat by Pulse Oximetry [ Anterior Bilateral Throughout] 11/10/20 11/10/20 11/10/20 01:26 01:27 01:30 Temperature Pulse Rate 79 75 71 Respiratory Rate Blood Pressure 119/58 117/57 107/56 O2 Sat by Pulse 97 Oximetry O2 Sat by Pulse Oximetry [ Anterior Bilateral Throughout] 11/10/20 11/10/20 11/10/20 01:33 01:35 01:36 Temperature Pulse Rate 73 85 86 Respiratory Rate Blood Pressure 105/62 105/62 O2 Sat by Pulse 98 Oximetry O2 Sat by Pulse Oximetry [ Anterior Bilateral Throughout] 11/10/20 11/10/20 11/10/20 01:39 01:40 01:42 Temperature Pulse Rate 73 97 H 85 Respiratory Rate Blood Pressure 105/56 114/61 O2 Sat by Pulse 97 Oximetry O2 Sat by Pulse Oximetry [ Anterior Bilateral Throughout] 11/10/20 11/10/20 11/10/20 01:45 01:48 01:50 Temperature Pulse Rate 74 86 83 Respiratory Rate Blood Pressure 111/61 109/59 O2 Sat by Pulse 97 97 Oximetry O2 Sat by Pulse Oximetry [ Anterior Bilateral Throughout] 11/10/20 11/10/20 11/10/20 01:51 01:54 01:55 Temperature Pulse Rate 81 84 79 Respiratory Rate Blood Pressure 105/55 112/55 O2 Sat by Pulse 97 Oximetry O2 Sat by Pulse Oximetry [ Anterior Bilateral Throughout] 11/10/20 11/10/20 11/10/20 01:57 02:00 02:03 Temperature Pulse Rate 71 78 70 Respiratory Rate Blood Pressure 113/56 98/53 O2 Sat by Pulse 98 Oximetry O2 Sat by Pulse Oximetry [ Anterior Bilateral Throughout] 11/10/20 11/10/20 11/10/20 02:05 02:10 02:13 Temperature Pulse Rate 71 59 L 63 Respiratory Rate Blood Pressure 96/54 O2 Sat by Pulse 96 97 Oximetry O2 Sat by Pulse Oximetry [ Anterior Bilateral Throughout] 11/10/20 11/10/20 11/10/20 02:15 02:20 02:23 Temperature Pulse Rate 60 62 59 L Respiratory Rate Blood Pressure 90/55 O2 Sat by Pulse 97 97 Oximetry O2 Sat by Pulse Oximetry [ Anterior Bilateral Throughout] 11/10/20 11/10/20 11/10/20 02:25 02:30 02:35 Temperature Pulse Rate 63 66 62 Respiratory Rate Blood Pressure 85/49 O2 Sat by Pulse 96 96 96 Oximetry O2 Sat by Pulse Oximetry [ Anterior Bilateral Throughout] 11/10/20 11/10/20 11/10/20 02:40 02:43 02:45 Temperature Pulse Rate 81 71 74 Respiratory Rate Blood Pressure 93/55 O2 Sat by Pulse 96 96 Oximetry O2 Sat by Pulse Oximetry [ Anterior Bilateral Throughout] 11/10/20 11/10/20 11/10/20 02:50 02:54 02:55 Temperature Pulse Rate 75 69 67 Respiratory Rate Blood Pressure 97/50 O2 Sat by Pulse 96 97 Oximetry O2 Sat by Pulse Oximetry [ Anterior Bilateral Throughout] 11/10/20 11/10/20 11/10/20 03:00 03:03 03:05 Temperature Pulse Rate 71 64 96 H Respiratory Rate Blood Pressure 91/53 O2 Sat by Pulse 96 96 Oximetry O2 Sat by Pulse Oximetry [ Anterior Bilateral Throughout] 11/10/20 11/10/20 11/10/20 03:10 03:13 03:15 Temperature Pulse Rate 64 66 63 Respiratory Rate Blood Pressure O2 Sat by Pulse 96 94 95 Oximetry O2 Sat by Pulse Oximetry [ Anterior Bilateral Throughout] 11/10/20 11/10/20 11/10/20 03:20 03:25 03:30 Temperature Pulse Rate 62 60 66 Respiratory Rate Blood Pressure O2 Sat by Pulse 96 96 95 Oximetry O2 Sat by Pulse Oximetry [ Anterior Bilateral Throughout] 11/10/20 11/10/20 11/10/20 03:35 03:38 03:40 Temperature Pulse Rate 64 62 66 Respiratory Rate Blood Pressure 86/47 O2 Sat by Pulse 95 95 Oximetry O2 Sat by Pulse Oximetry [ Anterior Bilateral Throughout] 11/10/20 11/10/20 11/10/20 03:44 03:45 03:50 Temperature Pulse Rate 76 62 79 Respiratory Rate Blood Pressure O2 Sat by Pulse 94 96 96 Oximetry O2 Sat by Pulse Oximetry [ Anterior Bilateral Throughout] 11/10/20 11/10/20 11/10/20 03:55 04:00 04:05 Temperature Pulse Rate 61 60 73 Respiratory Rate Blood Pressure O2 Sat by Pulse 97 97 96 Oximetry O2 Sat by Pulse Oximetry [ Anterior Bilateral Throughout] 11/10/20 11/10/20 11/10/20 04:07 04:10 04:15 Temperature 98.4 F Pulse Rate 57 L 62 70 Respiratory 16 Rate Blood Pressure 88/49 O2 Sat by Pulse 97 98 Oximetry O2 Sat by Pulse Oximetry [ Anterior Bilateral Throughout] 11/10/20 11/10/20 11/10/20 04:20 04:25 04:30 Temperature Pulse Rate 68 65 60 Respiratory Rate Blood Pressure O2 Sat by Pulse 97 97 98 Oximetry O2 Sat by Pulse Oximetry [ Anterior Bilateral Throughout] 11/10/20 11/10/20 11/10/20 04:35 04:39 04:40 Temperature Pulse Rate 78 60 70 Respiratory Rate Blood Pressure 89/54 O2 Sat by Pulse 96 97 Oximetry O2 Sat by Pulse Oximetry [ Anterior Bilateral Throughout] 11/10/20 11/10/20 11/10/20 04:45 04:50 04:55 Temperature Pulse Rate 64 71 65 Respiratory Rate Blood Pressure O2 Sat by Pulse 98 97 98 Oximetry O2 Sat by Pulse Oximetry [ Anterior Bilateral Throughout] 11/10/20 11/10/20 11/10/20 05:00 05:05 05:06 Temperature Pulse Rate 64 71 62 Respiratory Rate Blood Pressure 96/51 O2 Sat by Pulse 97 96 Oximetry O2 Sat by Pulse Oximetry [ Anterior Bilateral Throughout] 11/10/20 11/10/20 11/10/20 05:10 05:15 05:20 Temperature Pulse Rate 66 77 74 Respiratory Rate Blood Pressure O2 Sat by Pulse 96 97 98 Oximetry O2 Sat by Pulse Oximetry [ Anterior Bilateral Throughout] 11/10/20 11/10/20 11/10/20 05:25 05:30 05:35 Temperature Pulse Rate 72 81 71 Respiratory Rate Blood Pressure O2 Sat by Pulse 97 97 96 Oximetry O2 Sat by Pulse Oximetry [ Anterior Bilateral Throughout] 11/10/20 11/10/20 11/10/20 05:36 05:40 05:45 Temperature Pulse Rate 74 76 78 Respiratory Rate Blood Pressure 107/54 O2 Sat by Pulse 89 97 98 Oximetry O2 Sat by Pulse Oximetry [ Anterior Bilateral Throughout] 11/10/20 11/10/20 11/10/20 05:50 05:56 06:01 Temperature Pulse Rate 73 75 83 Respiratory Rate Blood Pressure O2 Sat by Pulse 97 98 98 Oximetry O2 Sat by Pulse Oximetry [ Anterior Bilateral Throughout] 11/10/20 11/10/20 11/10/20 06:06 06:11 06:16 Temperature Pulse Rate 71 63 65 Respiratory Rate Blood Pressure 98/51 O2 Sat by Pulse 100 97 97 Oximetry O2 Sat by Pulse Oximetry [ Anterior Bilateral Throughout] 11/10/20 11/10/20 11/10/20 06:21 06:26 06:31 Temperature Pulse Rate 62 62 64 Respiratory Rate Blood Pressure O2 Sat by Pulse 97 97 97 Oximetry O2 Sat by Pulse Oximetry [ Anterior Bilateral Throughout] 11/10/20 11/10/20 11/10/20 06:36 06:41 06:46 Temperature Pulse Rate 63 68 70 Respiratory Rate Blood Pressure 90/52 O2 Sat by Pulse 98 98 98 Oximetry O2 Sat by Pulse Oximetry [ Anterior Bilateral Throughout] 11/10/20 11/10/20 11/10/20 06:51 06:56 07:01 Temperature Pulse Rate 66 68 84 Respiratory Rate Blood Pressure O2 Sat by Pulse 98 97 97 Oximetry O2 Sat by Pulse Oximetry [ Anterior Bilateral Throughout] 11/10/20 11/10/20 11/10/20 07:04 07:06 07:11 Temperature Pulse Rate 96 H 83 73 Respiratory Rate Blood Pressure 103/55 O2 Sat by Pulse 94 93 96 Oximetry O2 Sat by Pulse Oximetry [ Anterior Bilateral Throughout] 11/10/20 11/10/20 11/10/20 07:16 07:17 07:21 Temperature Pulse Rate 82 82 96 H Respiratory Rate Blood Pressure O2 Sat by Pulse 94 94 99 Oximetry O2 Sat by Pulse Oximetry [ Anterior Bilateral Throughout] 11/10/20 11/10/20 11/10/20 07:26 07:31 07:32 Temperature 98.0 F Pulse Rate 77 85 Respiratory Rate Blood Pressure O2 Sat by Pulse 98 99 Oximetry O2 Sat by Pulse 97 Oximetry [ Anterior Bilateral Throughout] 11/10/20 11/10/20 11/10/20 07:36 07:41 07:46 Temperature Pulse Rate 81 85 73 Respiratory Rate Blood Pressure 100/57 O2 Sat by Pulse 97 97 97 Oximetry O2 Sat by Pulse Oximetry [ Anterior Bilateral Throughout] 11/10/20 11/10/20 11/10/20 07:51 07:56 08:01 Temperature Pulse Rate 67 67 64 Respiratory Rate Blood Pressure O2 Sat by Pulse 95 96 97 Oximetry O2 Sat by Pulse Oximetry [ Anterior Bilateral Throughout] 11/10/20 11/10/20 11/10/20 08:06 08:07 08:11 Temperature Pulse Rate 68 66 71 Respiratory Rate Blood Pressure 107/57 O2 Sat by Pulse 97 96 Oximetry O2 Sat by Pulse Oximetry [ Anterior Bilateral Throughout] 11/10/20 11/10/20 11/10/20 08:16 08:21 08:26 Temperature Pulse Rate 64 83 72 Respiratory Rate Blood Pressure O2 Sat by Pulse 96 95 96 Oximetry O2 Sat by Pulse Oximetry [ Anterior Bilateral Throughout] 11/10/20 11/10/20 11/10/20 08:31 08:35 08:36 Temperature Pulse Rate 71 71 76 Respiratory Rate Blood Pressure O2 Sat by Pulse 96 94 97 Oximetry O2 Sat by Pulse Oximetry [ Anterior Bilateral Throughout] 11/10/20 11/10/20 11/10/20 08:37 08:41 08:45 Temperature Pulse Rate 79 77 84 Respiratory Rate Blood Pressure 106/61 O2 Sat by Pulse 95 94 Oximetry O2 Sat by Pulse Oximetry [ Anterior Bilateral Throughout] 11/10/20 11/10/20 11/10/20 08:46 08:51 08:56 Temperature Pulse Rate 85 80 84 Respiratory Rate Blood Pressure O2 Sat by Pulse 93 93 98 Oximetry O2 Sat by Pulse Oximetry [ Anterior Bilateral Throughout] 11/10/20 11/10/20 11/10/20 09:01 09:06 09:07 Temperature Pulse Rate 69 80 75 Respiratory Rate Blood Pressure 117/62 O2 Sat by Pulse 98 96 Oximetry O2 Sat by Pulse Oximetry [ Anterior Bilateral Throughout] 11/10/20 11/10/20 11/10/20 09:11 09:17 09:21 Temperature Pulse Rate 84 78 70 Respiratory Rate Blood Pressure O2 Sat by Pulse 96 98 98 Oximetry O2 Sat by Pulse Oximetry [ Anterior Bilateral Throughout] 11/10/20 11/10/20 11/10/20 09:27 09:31 09:36 Temperature Pulse Rate 81 70 79 Respiratory Rate Blood Pressure O2 Sat by Pulse 96 97 97 Oximetry O2 Sat by Pulse Oximetry [ Anterior Bilateral Throughout] 11/10/20 11/10/20 11/10/20 09:38 09:42 09:46 Temperature Pulse Rate 70 79 74 Respiratory Rate Blood Pressure 108/55 O2 Sat by Pulse 96 97 Oximetry O2 Sat by Pulse Oximetry [ Anterior Bilateral Throughout] 11/10/20 11/10/20 11/10/20 09:51 09:56 10:01 Temperature Pulse Rate 62 71 68 Respiratory Rate Blood Pressure O2 Sat by Pulse 96 97 97 Oximetry O2 Sat by Pulse Oximetry [ Anterior Bilateral Throughout] 11/10/20 11/10/20 11/10/20 10:06 10:07 10:12 Temperature Pulse Rate 77 70 83 Respiratory Rate Blood Pressure 108/58 O2 Sat by Pulse 97 98 Oximetry O2 Sat by Pulse Oximetry [ Anterior Bilateral Throughout] 11/10/20 11/10/20 11/10/20 10:17 10:21 10:26 Temperature Pulse Rate 70 74 76 Respiratory Rate Blood Pressure O2 Sat by Pulse 97 97 94 Oximetry O2 Sat by Pulse Oximetry [ Anterior Bilateral Throughout] 11/10/20 11/10/20 11/10/20 10:27 10:32 10:36 Temperature Pulse Rate 91 H 74 92 H Respiratory Rate Blood Pressure O2 Sat by Pulse 98 99 98 Oximetry O2 Sat by Pulse Oximetry [ Anterior Bilateral Throughout] 11/10/20 11/10/20 11/10/20 10:37 10:41 10:46 Temperature Pulse Rate 82 81 86 Respiratory Rate Blood Pressure 101/54 O2 Sat by Pulse 98 98 Oximetry O2 Sat by Pulse Oximetry [ Anterior Bilateral Throughout] 11/10/20 11/10/20 11/10/20 10:51 10:56 11:01 Temperature Pulse Rate 80 83 82 Respiratory Rate Blood Pressure O2 Sat by Pulse 97 99 98 Oximetry O2 Sat by Pulse Oximetry [ Anterior Bilateral Throughout] 11/10/20 11/10/20 11/10/20 11:06 11:07 11:12 Temperature Pulse Rate 67 71 64 Respiratory Rate Blood Pressure 113/62 O2 Sat by Pulse 98 98 Oximetry O2 Sat by Pulse Oximetry [ Anterior Bilateral Throughout] 11/10/20 11/10/20 11/10/20 11:16 11:21 11:27 Temperature Pulse Rate 82 89 92 H Respiratory Rate Blood Pressure O2 Sat by Pulse 98 97 98 Oximetry O2 Sat by Pulse Oximetry [ Anterior Bilateral Throughout] 11/10/20 11/10/20 11/10/20 11:31 11:37 11:41 Temperature Pulse Rate 79 77 71 Respiratory Rate Blood Pressure 103/55 O2 Sat by Pulse 97 97 98 Oximetry O2 Sat by Pulse Oximetry [ Anterior Bilateral Throughout] 11/10/20 11/10/20 11/10/20 11:47 11:51 11:56 Temperature Pulse Rate 70 85 75 Respiratory Rate Blood Pressure O2 Sat by Pulse 98 98 98 Oximetry O2 Sat by Pulse Oximetry [ Anterior Bilateral Throughout] 11/10/20 11/10/20 11/10/20 12:01 12:06 12:11 Temperature Pulse Rate 76 76 73 Respiratory Rate Blood Pressure 114/68 O2 Sat by Pulse 97 97 96 Oximetry O2 Sat by Pulse Oximetry [ Anterior Bilateral Throughout] 11/10/20 12:16 Temperature Pulse Rate 77 Respiratory Rate Blood Pressure O2 Sat by Pulse 98 Oximetry O2 Sat by Pulse Oximetry [ Anterior Bilateral Throughout] - Exam Narrative Exam: Cervical exam is unchanged from this AM (4.5/60/-4). Discussed with patient progress of labor: No cervical change and baby's head not descending into the pelvis. Recommendation at this time was a . Pt agreed to plan at this time. Consents signed and on chart. Dr. Loera updated. Also possible SROM around 1130. A very small amount of mec stained fluid noted on blue chux on the bed. Breasts: deferred Cardiovascular: Regular rate Lungs: Normal air movement Vulva: both: normal FHR: category 1 Uterine Contraction Monitor Mode: External Cervical Dilatation: 4.5 Cervical Effacement Percentage: 60 station: -4 Uterine Contraction Pattern: Regular Uterine Tone Measurement Phase: Resting Uterine Contraction Intensity: Moderate Extremities: edema (+2 edema to hands and feet.) - Labs Labs: Abnormal Labs 11/08/20 11/08/20 11/08/20 17:32 17:32 22:47 RDW 15.8 H POC Glucose 187 H Lactate Dehydrogenase 214 H Urine WBC (Auto) 11/08/20 11/10/20 11/10/20 Unknown 05:59 10:20 RDW POC Glucose 69 L 67 L Lactate Dehydrogenase Urine WBC (Auto) 7.0 H Laboratory Results - last 24 hr 11/09/20 11/09/20 11/10/20 09:32 17:35 00:03 POC Glucose 89 76 Coronavirus (PCR) Negative 11/10/20 11/10/20 05:59 10:20 POC Glucose 69 L 67 L Coronavirus (PCR)
[2020-11-10] MEDS ORDERED: LIDOCAINE MPF (2%) 20 MG/1 ML VIAL 5 ML ONE (12:52)
[2020-11-10] MEDS ORDERED: ceFAZolin/Water 2 GM/20 ML 2 GM/20 ML SYRINGE IV NR (13:00)
[2020-11-10] MEDS ORDERED: LACTATED RINGERS 1,000 ML ONE (13:42)
[2020-11-10] MEDS ORDERED: cloNIDine/PF 1,000 MCG/10 ML VIAL EP ONE (14:26)
[2020-11-10] MEDS ORDERED: BUPIVACAINE/PF (0.25%) 2.5 MG/ML 30 ML VIAL INFILTRATI ONE (14:26)
[2020-11-10] MEDS ORDERED: dexAMETHasone 4 MG/ML VIAL ONE (14:26)
[2020-11-10] MEDS ORDERED: WITCH HAZEL/ GLYCERIN PAD TP PRN (14:56)
[2020-11-10] MEDS ORDERED: LANOLIN/ZINC/DIMETHICONE (LANSINOH) 7 GM TP PRN (14:56)
[2020-11-10] MEDS ORDERED: NALOXONE 0.4 MG/1 ML INJ IV PRN (14:56)
--- NOTE | 2020-11-10 15:45 | Anesthesia Day of Surgery ---
Anesthesia Day of Surgery - Day of Surgery Patient Examined: Yes Patient H&P Reviewed: Yes Patient is NPO: Yes
--- NOTE | 2020-11-10 15:52 | Progress Note ---
Regional Anesthesia Block - Regional Anesthesia Block Start Time: 14:39 Stop Time: 14:45 Performed By:: ANDREWS LYNCH Procedure: Bilateral Ultrasound Guided TAP Block Pt IDd, consent obtained, time out performed. Pt on monitor + O2 via NC, VS stable. Sterile prep. Landmarks identified with ultrasound. [2]cc skin wheel with 1% lidocaine. Needle advance in plane with ultrasound to fascial plane between internal oblique and transverse abdominus muscles. [30]cc [0.25]% bupivacaine + [4]mg decadron + [100]mcg clonidine injected incrementally with negative aspiration. Procedure repeated on opposite side w/ same volume/composition local anesthetic solution. Pt tolerated procedure well, no immediate complications noted.
[2020-11-10] MEDS ORDERED: HYDROmorphone 1 MG/1 ML INJ IV PRN ×2 (16:30)
[2020-11-10] MEDS ORDERED: MORPHINE 2 MG/1 ML INJ IV ONE (17:03)
[2020-11-10] MEDS ORDERED: MAGNESIUM SULFATE 40GM/1000ML 40 GM/1,000 ML BAG IV ONE (17:30)
[2020-11-10] MEDS ORDERED: MAGNESIUM SULFATE 40GM/1000ML 40 GM/1,000 ML BAG IV SCH (19:00)
--- NOTE | 2020-11-10 19:20 | Operative Report ---
Operative Report Operative Report: Date of procedure: 09/12/2020 Pre-operative diagnosis: at term Preeclampsia Gestational diabetes on insulin Advanced maternal age Failure to progress Post-operative diagnosis: Same Procedure name(s): Primary low transverse section via Pfannenstiel skin incision Surgeon: Dr. Loera Dictating Machine Mechanic: JEN Anesthesia: Epidural EBL: 545 ml qbl calculated Urine output: 25ml clear at end of the procedure Fluids:400ml Findings: Liveborn female 7pounds 13 oz Apgars of 8 and 9 at 1 and 5 minutes Grossly normal fallopian tubes and ovaries bilaterally Approximately 3 cm posterior fibroid Indications: Patient admitted for induction of labor due to diagnosis of preeclampsia with insulin-dependent gestational diabetes. Patient progressed approximately 4 cm dilated and remained unchanged more than 12 hours. Decision was made to proceed with primary section. All risk benefits and alternatives were discussed with the patient. Procedure: Patient was taking to the operating room. Patient was then prepped and draped in sterile fashion after anesthesia was found to be adequate. A low transverse skin incision was made with the scalpel and carried down to the underlying layer of fascia with the Bovie. The fascia was then incised in the midline and this incision was extended bilaterally with the Bovie. The superior aspect of the fascia was grasped with Karl clamps tented upward and dissected off of the anterior rectus muscles with the scalpel. In similar fashion the inferior aspect of the fascia was grasped with Karl clamps tented upward and dissected off of the anterior rectus muscles. The rectus muscles were then bluntly divided in the midline. The peritoneum was identified and entered into sharply. The bladder blade was placed. The bladder flap was created using the Metzenbaum scissors. The bladder blade was replaced. A lower transverse uterine incision was made with the scalpel and extended bilaterally with blunt dissection. Artificial rupture of membranes was performed yielding [clear amniotic fluid]. The infant's head was then delivered atraumatically. The anterior shoulder and rest of delivered without difficulty. The umbilical cord was clamped x2. The cord was cut. The was then placed in sterile bassinet. [The cord blood was collected.] The placenta was manually extracted in its entirety. The uterus was exteriorized and cleared of all clots and debris. The uterine incision was closed using 0 Vicryl in a running locking fashion. A second imbricating layer of the same suture was then created. The posterior cul-de-sac was copiously irrigated. The uterus was returned to the abdomen. The gutters were also irrigated. Heema blast was placed along the uterine incision with excellent hemostasis noted. The anterior rectus muscles were reapproximated using 3-0 Vicryl. The anterior rectus fascia was reapproximated using 0 Vicryl in a running fashion. The subcuticular fat was reapproximated using 2-0 Vicryl in a running fashion. The skin was reapproximated with 4-0 Monocryl in a subcuticular stitch. The patient tolerated the procedure well. Sponge lap and needle counts were all correct x3. Patient was taken to the recovery room awake and in stable condition.
[2020-11-10] MEDS: LACTATED RINGERS 1,000 ML IV SCH (20:23)
[2020-11-10] MEDS: ceFAZolin/NS 1 GM/50 ML 1 GM/50 ML BAG IV SCH (22:44)
[2020-11-11] MEDS ORDERED: LACTATED RINGERS 1,000 ML ONE (04:06)
[2020-11-11] MEDS: ceFAZolin/NS 1 GM/50 ML 1 GM/50 ML BAG IV SCH (05:26)
[2020-11-11] MEDS ORDERED: LACTATED RINGERS 1,000 ML IV SCH (05:30)
[2020-11-11 06:30] LABS: Hematocrit 34.8 % (30.3-42.9); Hemoglobin 11.7 gm/dl (10.1-14.3)
--- NOTE | 2020-11-11 07:04 | Progress Note ---
Assessment and Plan Patient to be transferred to [facility] for routine postop care. Encouraged . will continue to monitor b/p's and blood sugars. once regular diet has been resumed, will start insulin at 1/2 pre-delivery rate. - Patient Problems (1) Advanced maternal age (AMA) in Current Visit: Yes Status: Acute (2) IDDM (insulin dependent diabetes mellitus) Current Visit: Yes Status: Acute (3) Pre-eclampsia Current Visit: Yes Status: Acute Qualifiers: Trimester: third trimester Qualified Code(s): O14.93 - Unspecified pre- eclampsia, third trimester (4) delivery delivered Current Visit: Yes Status: Acute Subjective - Subjective Date of service: 11/11/20 Principal diagnosis: postop day #1 s/p primary c/s Interval history: EDC Calculations by LMP: 11/20/2020 Past History : 1 Term Births: 0 Premature Births: 0 Living Children: 0 Para: 0 Mult. Births: 0 Prev : 0 Prev. attempt? 0 Aborta: 0 Elect. Ab: 0 Spont. 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 of genital herpes: no Partner hx. of genital herpes: no Rash, Viral, or Febrile illness since last LMP? no Genetic History ADVANCED MATERNAL AGE Congenital Heart Defect: Mom: no Dad: no Merle Disease: Mom: no Dad: no Thalassemia Mom: no Dad: no Neural Tube Defect Mom: no Dad: no Down's Syndrome Mom: no Dad: no Cristino-Sachs Mom: no Dad: no Sickle Cell Disease/Trait Mom: no Dad: no Hemophilia Mom: no Dad: no Muscular Dystrophy Mom: no Dad: no Cystic Fibrosis Mom: no Dad: no [place] Chorea Mom: no Dad: no Mental Retardation Mom: no Dad: no Fragile X Mom: no Dad: no Other Genetic/Chromosomal Disorder Mom: no Dad: no Child w/other defect Mom: no Dad: no Enviromental Exposures Xray Exposure: no Medication, drug, or alcohol use since LMP: no Chemical/Other Exposure: no Exposure to Cat Liter: no Hx of Parvovirus (Fifth Disease): no Occupational Exposure to Children: none Current Allergies (reviewed today): * SEASONAL ALLERGIES (Critical) Patient reports: appetite normal, pain well controlled, no nauseated Wood: doing well, bottle feeding Objective - Vital Signs Latest vital signs: Vital Signs Temp Pulse Resp BP BP Pulse Ox Pulse Ox 11/11/20 06:49 46 L 113/50 11/11/20 05:49 48 L 104/66 11/11/20 04:49 48 L 119/55 11/11/20 01:49 48 L 113/56 11/11/20 00:49 51 L 111/56 11/10/20 23:49 56 L 139/70 11/10/20 23:00 98 11/10/20 22:52 56 L 97 11/10/20 22:49 49 L 122/63 11/10/20 22:47 51 L 97 11/10/20 22:42 46 L 98 11/10/20 22:37 50 L 96 11/10/20 22:32 49 L 97 11/10/20 22:27 48 L 97 11/10/20 22:22 56 L 98 11/10/20 22:17 52 L 98 11/10/20 22:12 48 L 98 11/10/20 22:07 50 L 97 11/10/20 22:02 45 L 97 11/10/20 21:57 56 L 97 11/10/20 21:52 60 98 11/10/20 21:49 47 L 123/59 11/10/20 21:47 47 L 97 11/10/20 21:42 48 L 97 11/10/20 21:37 53 L 97 11/10/20 21:32 52 L 98 11/10/20 21:27 52 L 97 11/10/20 21:22 55 L 97 11/10/20 21:17 62 97 11/10/20 21:12 49 L 98 11/10/20 21:07 49 L 97 11/10/20 21:02 50 L 98 11/10/20 20:57 51 L 97 11/10/20 20:52 51 L 98 11/10/20 20:47 49 L 97 11/10/20 20:42 49 L 97 11/10/20 20:37 48 L 97 11/10/20 20:32 51 L 96 11/10/20 20:27 52 L 98 11/10/20 20:22 53 L 98 11/10/20 20:17 55 L 97 11/10/20 20:12 55 L 97 11/10/20 20:07 53 L 97 11/10/20 20:02 53 L 97 11/10/20 19:57 52 L 92 11/10/20 19:52 58 L 98 11/10/20 19:47 57 L 97 11/10/20 19:42 54 L 97 11/10/20 19:37 56 L 98 11/10/20 19:32 59 L 98 11/10/20 19:27 57 L 97 11/10/20 19:22 55 L 97 11/10/20 19:17 62 97 11/10/20 19:12 57 L 98 11/10/20 19:07 61 98 11/10/20 19:02 74 97 11/10/20 19:00 98 11/10/20 18:57 64 98 11/10/20 18:52 65 98 11/10/20 18:47 59 L 97 11/10/20 18:42 70 97 11/10/20 18:37 67 98 11/10/20 18:32 69 97 11/10/20 18:27 71 96 11/10/20 18:23 99.4 F 109/52 11/10/20 18:22 66 98 11/10/20 18:17 72 96 11/10/20 18:12 74 97 11/10/20 18:07 64 97 11/10/20 18:02 59 L 97 11/10/20 17:57 62 98 11/10/20 17:52 81 96 11/10/20 17:47 63 96 11/10/20 17:42 58 L 97 11/10/20 17:38 54 L 109/52 11/10/20 17:37 56 L 98 11/10/20 17:32 52 L 98 11/10/20 17:27 61 98 11/10/20 17:22 63 98 11/10/20 17:17 58 L 98 11/10/20 17:12 61 98 11/10/20 17:07 53 L 98 11/10/20 17:02 57 L 99 11/10/20 16:15 97.8 F 60 18 130/68 11/10/20 16:00 97.8 F 65 18 127/59 11/10/20 15:45 97.8 F 60 16 121/61 11/10/20 15:30 97.8 F 65 16 115/53 11/10/20 15:15 97.7 F 61 16 130/67 11/10/20 15:05 97.7 F 71 16 120/64 11/10/20 14:50 97.7 F 72 16 125/65 11/10/20 14:45 97.7 F 70 16 134/65 11/10/20 14:40 97.7 F 69 14 133/55 11/10/20 13:13 63 96 11/10/20 13:08 70 98 11/10/20 13:01 69 96 11/10/20 12:57 69 96 11/10/20 12:51 70 97 11/10/20 12:46 67 97 11/10/20 12:41 80 97 11/10/20 12:37 72 123/67 11/10/20 12:36 74 97 11/10/20 12:33 90 84 11/10/20 12:31 76 98 11/10/20 12:27 79 97 11/10/20 12:21 75 98 11/10/20 12:16 77 98 11/10/20 12:11 73 96 11/10/20 12:06 76 114/68 97 11/10/20 12:01 76 97 11/10/20 11:56 75 98 11/10/20 11:51 85 98 11/10/20 11:47 70 98 11/10/20 11:41 71 98 11/10/20 11:37 77 103/55 97 11/10/20 11:31 79 97 11/10/20 11:27 92 H 98 11/10/20 11:21 89 97 11/10/20 11:16 82 98 11/10/20 11:12 64 98 11/10/20 11:07 71 113/62 08/06/21 11:06 67 98 08/06/ 11:01 82 98 08/06/21 10:56 83 99 08/06 10:51 80 97 0806 10:46 86 98 0806 10:41 81 98 08/06 10:37 82 101/54 08 10:36 92 H 98 08/06 10:32 74 99 08/06/ 10:27 91 H 98 0806 10:26 76 94 08/06/21 10:21 74 97 08/06/ 10:17 70 97 08/06 10:12 83 98 0806 10:07 70 108/58 08 10:06 77 97 11/10/20 10:01 68 97 11/10/20 09:56 71 97 11/10/20 09:51 62 96 11/10/20 09:46 74 97 11/10/20 09:42 79 96 08 09:38 70 108/55 11/10/20 09:36 79 97 08 09:31 70 97 11/10/20 09:27 81 96 0806 09:21 70 98 11/10/20 09:17 78 98 08 09:11 84 96 11/10/20 09:07 75 117/62 08 09:06 80 96 08 09:01 69 98 0806 08:56 84 98 06 08:51 80 93 0806 08:46 85 93 11/10/20 08:45 84 94 0806 08:41 77 95 0806/21 08:37 79 106/61 08/06/21 08:36 76 97 08/06/21 08:35 71 94 0806 08:31 71 96 0806 08:26 72 96 080621 08:21 83 95 08/06/21 08:16 64 96 0806/21 08:11 71 96 08/06 08:07 66 107/57 0806/ 08:06 68 97 08/06 08:01 64 97 0806 07:56 67 96 0809/25 07:51 67 95 08/06/21 07:46 73 97 11/10/20 07:41 85 97 11/10/20 07:36 81 100/57 97 11/10/20 07:32 98.0 F 97 11/10/20 07:31 85 99 11/10/20 07:26 77 98 11/10/20 07:21 96 H 99 11/10/20 07:17 82 94 11/10/20 07:16 82 94 11/10/20 07:11 73 96 11/10/20 07:06 83 103/55 93 11/10/20 07:04 96 H 94 Intake and Output 11/10/20 11/10/20 11/11/20 15:59 23:59 07:59 Intake Total 457.333 450 Output Total 25 1000 Balance 432.333 450 -1000 Intake: IV 457.333 450 ANCEF/NS 1 GM/50 ML 1 gm 50 In 50 ml @ 100 mls/hr IV Q8H [facility] Rx#:[id number] PITOCin/NS 30 UNIT/500ML 57.333 30 units In 500 ml @ 2 MILLIUNITS/MIN 2 mls/hr IV TITR [facility] Rx#:[id number] Output: Urine 25 1000 Void 1000 Other: Total, Output Amount 600 - Exam Breasts: Present: normal Cardiovascular: Present: Regular rate Lungs: Present: Normal air movement Abdomen: Present: normal appearance, soft Vulva: both: normal Uterus: Present: normal, firm, fundal height at umbilicus Extremities: Present: normal Deep Tendon Reflex Grade: Normal +2 Incision: Present: normal, dry, dressed - Labs Labs: Abnormal lab results 11/10/20 Range/Units 10:20 POC Glucose 67 L (70-105) mg/dL
[2020-11-11] MEDS: KETOROLAC 30 MG/1 ML INJ IV PRN ×2 (07:44→13:11)
[2020-11-11] MEDS ORDERED: DEXTROSE 50% IN WATER (25GM) 50 ML SYRINGE IV PRN (10:22)
[2020-11-11] MEDS ORDERED: INSULIN REGULAR, HUMAN 100 UNITS/1 ML SUB-Q SCH (11:30)
[2020-11-11] MEDS ORDERED: IBUPROFEN 600 MG TAB PO PRN (14:00)
[2020-11-11] MEDS ORDERED: IBUPROFEN 800 MG TAB PO PRN (14:00)
--- NOTE | 2020-11-11 15:51 | Post Anesthesia Evaluation ---
- Post Anesthesia Evaluation Patient Participated: Yes Airway Patent: Yes Stable Respiratory Function: Yes Nausea/Vomiting: No Temp > 96.8F: Yes Pain Manageable: Yes Adequeate Hydration: Yes Anesthesia Complications: No Block Receding Appropriately: Yes
[2020-11-11] MEDS: HYDROcodone/ACETAMINOPHEN 5-325 MG TAB PO PRN (17:23)
[2020-11-12] MEDS: HYDROcodone/ACETAMINOPHEN 5-325 MG TAB PO PRN ×2 (01:03→08:55)
[2020-11-12 08:03] VITALS: BP 111/69
--- NOTE | 2020-11-12 09:53 | Discharge Summary ---
Providers - Providers Date of Admission: 11/08/20 16:29 Date of discharge: 11/12/20 (desires d/c home) Attending physician: GAB BOLTON Primary care physician: GAB BOLTON Hospitalization Reason for admission: induction Condition: Good Pertinent studies: postop H&H 11.7/34.8 Procedures: LTCS Hospital course: uncomplicated c/s and postop course Disposition: DC-01 TO HOME OR SELFCARE Final Discharge Diagnosis (Prints w/discharge instructions): c/s Time spent for discharge: 30 - Discharge Diagnoses (1) delivery delivered Status: Acute Core Measure Documentation - Palliative Care Palliative Care/ Comfort Measures: Not Applicable - Core Measures Any of the following diagnoses?: none Exam - Constitutional Vitals: Temp Pulse Resp BP Pulse Ox 98.2 F 77 20 111/69 97 11/12/20 08:01 11/12/20 08:01 11/12/20 08:55 11/12/20 08:01 11/12/20 08:25 General appearance: Present: no acute distress, well-nourished - EENT Eyes: Present: PERRL ENT: hearing intact, clear oral mucosa - Neck Neck: Present: supple, normal ROM - Respiratory Respiratory effort: normal Respiratory: bilateral: CTA - Cardiovascular Rhythm: regular Heart Sounds: Absent: rub, click - Extremities Extremities: No edema - Abdominal General gastrointestinal: Present: soft, non-tender, non-distended, normal bowel sounds Female genitourinary: Present: normal - Integumentary Integumentary: Present: clear, warm, dry - Musculoskeletal Musculoskeletal: gait normal, strength equal bilaterally - Psychiatric Psychiatric: appropriate mood/affect, intact judgment & insight - Neurologic Neurologic: CNII-XII intact, moves all extremities - Additional findings Additional findings: incision D&I, lochia scant, fundus firm, breat and bottle feeding Plan Activity: advance as tolerated Diet: regular Wound: open to air, keep clean and dry Special Instructions: no heavy lifting Follow up with: GAB BOLTON MD [Primary Care Provider] - 7 Days (Congratulations! Please call [phone] to schedule your incision check in 1 week. Call for any questions or concerns. )
== END 2020-11-12 15:30 | disposition home or self-care (01) | DRG 788 ==
LOC: TRG 16:14 → LD 16:23 → TRG 16:29 → OB 11-11 08:21
PROVIDERS: ADMIT Obstetrics & Gynecology; ATTEND Obstetrics & Gynecology
PROC: 10D00Z1 Extraction of Products of Conception, Low, Open Approach (ICD-10-PCS; principal; 2020-11-10)
DX: O24.429 Gestational diabetes mellitus in childbirth, unspecified control (principal); Z3A.38 38 weeks gestation of pregnancy; Z20.822 Contact with and (suspected) exposure to COVID-19; O99.52 Diseases of the respiratory system complicating childbirth; J45.909 Unspecified asthma, uncomplicated; O11.4 Pre-existing hypertension with pre-eclampsia, complicating childbirth; Z79.4 Long term (current) use of insulin; Z37.0 Single live birth
CPT/HCPCS: 36415; 59200; 81001; 82565; 82962; 83615; 84450; 84460; 84550; 85014; 85018; 85027; 86592; 86850; 86900; 86901; 88307; G0378; J0690; J0735; J1100; J1170; J1815; J1885; J2270; J2370; J2590; J2765; J3010; J7120; U0003

== ENCOUNTER 2020-12-08 12:02 | Outpatient (CLI) | payer BC ==
--- NOTE | 2020-12-08 14:05 | Cat Scan Report ---
CT ABDOMEN AND PELVIS WITHOUT CONTRAST INDICATION / CLINICAL INFORMATION: ABDOMINAL PAIN SINCE C SECTION ON NOVEMBER 13 2020. TECHNIQUE: Axial CT images were obtained through the abdomen and pelvis without IV contrast. Sagittal and melara l reformatted images. All CT scans at this location are performed using CT dose reduction for ALARA b y means of automated exposure control. COMPARISON: None available. FINDINGS: LOWER CHEST: No significant abnormality. LIVER: No significant abnormality. GALLBLADDER: No significant abnormality. BILE DUCTS: No significant abnormality. PANCREAS: No significant abnormality. SPLEEN: No significant abnormality. ADRENALS: No significant abnormality. RIGHT KIDNEY and URETER: No significant abnormality. LEFT KIDNEY and URETER: No significant abnormality. STOMACH and SMALL BOWEL: No significant abnormality. COLON: No significant abnormality. APPENDIX: Normal. PERITONEUM: No free fluid. No free air. No fluid collection. LYMPH NODES: No significant adenopathy. AORTA and ARTERIES: No significant abnormality. IVC and VEINS: No significant abnormality. URINARY BLADDER: The bladder is empty and poorly evaluated but no gross abnormality. REPRODUCTIVE ORGANS: Mildly enlarged uterus is noted. No mass, hemorrhage or other abnorma lity. The adnexal regions are unremarkable. scar is unremarkable. ADDITIONAL FINDINGS: None. SKELETAL SYSTEM: No significant abnormality. IMPRESSION: No significant abnormality. Signer Name: Sam Guevara Jr, MD Signed: 12/08/2020 2:00 PM Workstation Name: [id number]
== END 2020-12-08 12:03 | disposition home or self-care (01) ==
LOC: CT 12:02
PROVIDERS: ATTEND Obstetrics & Gynecology
DX: N85.2 Hypertrophy of uterus (principal)
CPT/HCPCS: 74176

== ENCOUNTER 2020-12-26 11:04 | Outpatient (CLI) | payer BC | END 2020-12-26 11:05 | disposition home or self-care (01) | LOC: LAB 11:04 | PROVIDERS: ATTEND Nurse Practitioner Women's Health | DX: O24.414 Gestational diabetes mellitus in pregnancy, insulin controlled (principal); Z39.2 Encounter for routine postpartum follow-up | CPT/HCPCS: 36415; 82951 ==

== ENCOUNTER 2021-01-22 15:52 | Outpatient (CLI) | payer BC ==
[2021-01-22 17:04] LABS: Basophils % (Auto) 0.5 % (0.0-1.8); Eosinophils # (Auto) 0.1 K/mm3 (0.0-0.4); Hematocrit 39.8 % (30.3-42.9); Hemoglobin 13.7 gm/dl (10.1-14.3); Lymphocytes # (Auto) 2.9 K/mm3 (1.2-5.4); Lymphocytes % (Auto) 35.1 % (13.4-35.0); Mean Corpuscular HGB Conc 34 % (30-34); Mean Corpuscular Volume 88 fl (79-97); Monocytes # (Auto) 0.3 K/mm3 (0.0-0.8); Monocytes % (Auto) 4.2 % (0.0-7.3); Platelet Count 302 K/mm3 (140-440); Red Blood Count 4.53 M/mm3 (3.65-5.03); Red Cell Distribution Width 13.6 % (13.2-15.2)
[2021-01-22 18:36] LABS: Alanine Aminotransferase 19 units/L (7-56); Albumin 4.8 g/dL (3.9-5); Blood Urea Nitrogen 8 mg/dL (7-17); Calcium 9.9 mg/dL (8.4-10.2); Hemolysis Index 0
[2021-01-22 18:39] LABS: BUN/Creatinine Ratio 27
[2021-01-22 19:20] LABS: Chol/HDL Ratio 5.95 %; HDL Cholesterol 46 mg/dL (40-59); LDL Cholesterol,Direct 209 mg/dL (50-130)
== END 2021-01-22 15:53 | disposition home or self-care (01) ==
LOC: LAB 15:52
PROVIDERS: ATTEND Internal Medicine
DX: Z13.29 Encounter for screening for other suspected endocrine disorder (principal); Z00.00 Encounter for general adult medical examination without abnormal findings; E11.65 Type 2 diabetes mellitus with hyperglycemia; E78.5 Hyperlipidemia, unspecified; E55.9 Vitamin D deficiency, unspecified
CPT/HCPCS: 36415; 80053; 80061; 83036; 84443; 85025

== ENCOUNTER 2021-05-17 13:17 | Outpatient (CLI) | payer BC ==
[2021-05-17 13:56] LABS: Alanine Aminotransferase 20 units/L (7-56); Albumin 4.4 g/dL (3.9-5); Chol/HDL Ratio 4.42 %; HDL Cholesterol 49 mg/dL (40-59); LDL Cholesterol,Direct 152 mg/dL (50-130)
[2021-05-17 13:58] LABS: Bilirubin,Direct < 0.2 mg/dL (0-0.2)
== END 2021-05-17 13:18 | disposition home or self-care (01) ==
LOC: LAB 13:17
PROVIDERS: ATTEND Internal Medicine
DX: R94.5 Abnormal results of liver function studies (principal); E11.65 Type 2 diabetes mellitus with hyperglycemia; E78.5 Hyperlipidemia, unspecified
CPT/HCPCS: 36415; 80061; 80076; 83036